=== PATIENT | female | born 1960 | race Native Hawaiian/Other Pacific Islander ===

== ENCOUNTER 2017-09-17 10:17 | Day surgery (SDC) | payer OTHER ==
[2016-12-18 12:20] VITALS: BMI 19.5
--- NOTE | 2017-09-17 11:32 | CP.SDSHP ---
Same Day Surgery H & P - History Proposed Procedure: US guided FNA of left thyroid nodule Pre-Op Diagnosis: left thyroid nodule - Allergies Allergies: Allergies No Known Allergies Allergy (Verified 10/15/15 10:19) - Physical Exam Mental Status: Alert & Oriented x3 - Impression Impression: Pt with left thyroid nodule. Plan US guided FNA of left thyroid nodule. Informed consent and risk of bleed discussed. Pt. Evaluated Today:Candidate for Anesthesia & Procedure: No - Date & Time Date: 09/17/17 Time: 11:10 Short Stay Discharge - Short Stay Discharge Admitting Diagnosis/Reason for Visit: NONTOXIC SINGLE THYROID NODULE Disposition: HOME/ ROUTINE
--- NOTE | 2017-09-17 11:34 | PCM.SURG1 ---
Surgeon's Initial Post Op Note - Surgeon's Notes Surgeon: Giovanny Syed MD Welder: NONE Type of Anesthesia: Local Pre-Operative Diagnosis: left thyroid nodule Operative Findings: US showed a complex 1.8 cm left thyroid nodule Post-Operative Diagnosis: left thyroid nodule Operation Performed: US guided FNA of left thyroid nodule. Five 25 g FNA specimen removed. Specimen/Specimens Removed: 25 g FNA x 5 Estimated Blood Loss: EBL {In ML}: 1 Blood Products Given: N/A Drains Used: No Drains Post-Op Condition: Good Date of Surgery/Procedure: 09/17/17 Time of Surgery/Procedure: 11:30
[2017-09-17 12:04] VITALS: BP 115/63; PULSE 60; RESP 16; TEMP 97.4; O2SAT 97
--- NOTE | 2017-09-18 13:40 | US ---
PROCEDURE: Date of Procedure: 09/17/2017 PROCEDURE: 1. Ultrasound guided FNA of left thyroid nodule, CPT 94341 2. Ultrasound guidance for FNA, 63472 Medications: 3cc 1% Lidocaine HISTORY: Enlarged left thyroid nodule. TECHNIQUE: Following informed consent and procedure time-out, a limited ultrasound patient's neck confirmed the presence of a 1.95 cm x 1.1 cm complex left thyroid nodule which is predominantly solid. After the patient's neck was prepped and draped in the usual sterile fashion, the skin was anesthetized with 1% lidocaine. Ultrasound-guided fine needle aspiration was then performed of the dominant left thyroid nodule. A total of 5passes were made into the nodule with 25 gauge needle under ultrasound guidance. The FNA specimen was sent for routine pathology and genetics. Post biopsy ultrasound showed no hematoma. IMPRESSION: Ultrasound-guided FNA of the dominant left thyroid nodule.
== END 2017-09-17 12:16 | disposition home or self-care (01) ==
LOC: C.SPRAD 10:17
PROVIDERS: ATTEND Radiology Vascular & Interventional Radiology
DX: E04.1 Nontoxic single thyroid nodule (principal)

== ENCOUNTER 2018-02-03 12:24 | Emergency (ER) | payer OTHER ==
[2018-02-03 12:25] VITALS: BMI 19.5
[2018-02-03 12:48] VITALS: BP 117/72; PULSE 84; RESP 16; TEMP 99; O2SAT 98
--- NOTE | 2018-02-03 13:25 | C.PDOC ---
History Of Present Illness 57 year old female presents to the ED complaining of cough, congestion, and runny nose for one week. Associated symptoms include low appetite because every time she eats she feels nauseated. Also notes she has watery diarrhea and headache. Denies any vomiting, abdominal pain, fever, chills, throat pain, ear pain. Reports she has been taking Advil and it has been helping the headache. Denies sick contacts or recent travels. Time Seen by Provider: 02/03/18 12:45 Chief Complaint (Nursing): Cough, Cold, Congestion History Per: Patient History/Exam Limitations: no limitations Onset/Duration Of Symptoms: Days (7) Current Symptoms Are (Timing): Still Present Location Of Pain: Headache Associated Symptoms: Cough, Nasal Congestion, Nausea, Diarrhea. denies: Fever, Chills, Sore Throat, Vomiting Ear Symptoms: Bilateral: None Recent travel outside of the [place]: No Past Medical History Reviewed: Historical Data, Nursing Documentation, Vital Signs Vital Signs: Last Vital Signs Temp 99 F 02/03/18 12:41 Pulse 84 02/03/18 12:41 Resp 16 02/03/18 12:41 BP 117/72 02/03/18 12:41 Pulse Ox 98 02/03/18 12:41 - Medical History PMH: HTN, Migraine Denies: Chronic Kidney Disease Other Surgeries: hx of surgeries Family History: States: CAD - Social History Hx Alcohol Use: No Hx Substance Use: No Review Of Systems Constitutional: Negative for: Fever, Chills ENT: Positive for: Nose Discharge, Nose Congestion. Negative for: Ear Pain, Throat Pain Respiratory: Positive for: Cough Gastrointestinal: Positive for: Nausea, Diarrhea. Negative for: Vomiting, Abdominal Pain Neurological: Positive for: Headache Physical Exam - Physical Exam Appears: Non-toxic, No Acute Distress Skin: Warm, Dry, No Rash Head: Normacephalic Eye(s): bilateral: Normal Inspection Nose: Normal Oral Mucosa: Moist Neck: Supple Chest: Symmetrical Cardiovascular: Rhythm Regular Respiratory: Normal Breath Sounds, No Rales, No Rhonchi, No Wheezing Extremity: Bilateral: Atraumatic, Normal Color And Temperature, Normal ROM Neurological/Psych: Oriented x3, Normal Speech Gait: Steady ED Course And Treatment O2 Sat by Pulse Oximetry: 98 (RA) Pulse Ox Interpretation: Normal Medical Decision Making Medical Decision Making: Patient remained afebrile alert and oriented with stable vital signs during ER evaluation. Patient given Rx for Tessalon Perles and Zofran. . Instructed to return to ER if symptoms worsen or new symptoms arise. Disposition - Disposition Disposition: HOME/ ROUTINE Disposition Time: 13:18 Condition: GOOD Additional Instructions: SARAH BLACKWELL, thank you for letting us take care of you today. Your provider was Rosibel Saleh MD and you were treated for COUGH. The emergency medical care you received today was directed at your acute symptoms. If you were prescribed any medication, please fill it and take as directed. It may take several days for your symptoms to resolve. Return to the Emergency Department if your symptoms worsen, do not improve, or if you have any other problems. Please contact your doctor or call one of the physicians/clinics you have been referred to that are listed on the Patient Visit Information form that is included in your discharge packet. Bring any paperwork you were given at discharge with you along with any medications you are taking to your follow up visit. Our treatment cannot replace ongoing medical care by a primary care provider outside of the emergency department. Thank you for allowing the [facility] team to be part of your care today. If you had an X-Ray or CT scan: A Radiologist will review the ED reading if any change in treatment is needed we will contact you. If you had a blood, urine, or wound culture: It will take several days for the results, if any change in treatment is needed we will contact you. If you had an STI test: It will take 48 hours for the results. Please call after 1 week if you have not heard back. Prescriptions: Benzonatate [Tessalon Perles] 100 mg PO BID #10 sgl Ondansetron ODT [Zofran ODT] 4 mg PO Q8H PRN #10 odt PRN Reason: Nausea/Vomiting Instructions: Upper Respiratory Infection (ED) Forms: Affirm (Estonian) - Clinical Impression Clinical Impression: Upper respiratory infection - Scribe Statement The provider has reviewed the documentation as recorded by the Scribe Ghada Lawrence All medical record entries made by the Scribe were at my direction and personally dictated by me. I have reviewed the chart and agree that the record accurately reflects my personal performance of the history, physical exam, medical decision making, and the department course for this patient. I have also personally directed, reviewed, and agree with the discharge instructions and dis position.
== END 2018-02-03 13:16 | disposition home or self-care (01) ==
LOC: C.ER 12:24
DX: J06.9 Acute upper respiratory infection, unspecified (principal)

== ENCOUNTER 2018-03-12 09:24 | Outpatient (CLI) | payer OTHER | END 2018-03-12 09:25 | disposition home or self-care (01) | LOC: C.MAMMO 09:24 | DX: Z12.31 Encounter for screening mammogram for malignant neoplasm of breast (principal) ==

== ENCOUNTER 2018-03-25 10:09 | Outpatient (CLI) | payer OTHER | END 2018-03-25 10:10 | disposition home or self-care (01) | LOC: C.LAB 10:09 ==

== ENCOUNTER 2018-04-17 08:44 | Outpatient (CLI) | payer SELFPAY, OTHER | END 2018-04-17 08:45 | disposition home or self-care (01) | LOC: C.USIC 08:44 | DX: E04.1 Nontoxic single thyroid nodule (principal) ==